=== PATIENT | male | born 2000 | race African-American/Black ===

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

== ENCOUNTER 2021-11-07 13:50 | Emergency (ER) | payer MEDICAID ==
[~2021-11-07] VITALS: Ht 177.8 cm; Wt 118.2 kg
[~2021-11-07 13:50] MED LIST: DOXYCYCLINE 10100 MG PO
[2021-11-07 14:15] VITALS: TEMP 98.6
[2021-11-07 15:30] VITALS: BP 100/89; PULSE 77
== END 2021-11-07 15:30 | disposition home or self-care (01) ==
LOC: COL.ER 13:50
DX: S81.812A Laceration without foreign body, left lower leg, initial encounter (principal); F17.290 Nicotine dependence, other tobacco product, uncomplicated; Z23 Encounter for immunization; Z28.310 Unvaccinated for COVID-19; X15.0XXA Contact with hot stove (kitchen), initial encounter; Y92.009 Unspecified place in unspecified non-institutional (private) residence as the place of occurrence of the external cause